=== PATIENT | male | born 2000 | race Caucasian/White ===

== ENCOUNTER 2019-06-21 18:20 | Emergency (ER) | payer OTHER ==
[~2019-06-21] VITALS: Ht 188 cm; Wt 106.4 kg
[2019-06-21 19:41] LABS: HEMATOCRIT 51.2 % (42.0-52.0); HEMOGLOBIN 16.5 g/dl (13.5-17.5); MEAN CORPUSCULAR HEMOGLOBIN 29.2 pg (27.0-33.0); MEAN CORPUSCULAR HGB CONC 32.2 g/dl (32.0-36.5); MEAN CORPUSCULAR VOLUME 90.5 fl (80.0-96.0); PLATELET COUNT, AUTOMATED 256 10^3/uL (150-450); RED BLOOD COUNT 5.66 10^6/uL (4.30-6.10); WHITE BLOOD COUNT 6.5 10^3/uL (4.0-10.0)
[2019-06-21 20:21] LABS: ACETAMINOPHEN LEVEL < 2.0 UG/ML (10.0-30.0); ALBUMIN 3.9 GM/DL (3.2-5.2); ALT/SGPT 60 U/L (12-78); BILIRUBIN,DIRECT 0.1 MG/DL (0.0-0.2); BILIRUBIN,TOTAL 0.5 MG/DL (0.2-1.0); BLOOD UREA NITROGEN 16 MG/DL (7-18); CALCIUM LEVEL 9.4 MG/DL (8.5-10.1); CARBON DIOXIDE LEVEL 29 MEQ/L (21-32); CHLORIDE LEVEL 106 MEQ/L (98-107); CREATININE FOR GFR 1.18 MG/DL (0.70-1.30); ETHYL ALCOHOL (ETHANOL) < 0.003 % (0.000-0.010); GLUCOSE, FASTING 79 MG/DL (70-100); POTASSIUM SERUM 4.5 MEQ/L (3.5-5.1); SALICYLATE LEVEL < 1.7 MG/DL (5.0-30.0); SODIUM LEVEL 141 MEQ/L (136-145); THYROID STIMULATING HORMONE 0.416 uIU/ML (0.463-3.98); TOTAL PROTEIN 7.5 GM/DL (6.4-8.2)
[2019-06-21 21:32] LABS: AMPHETAMINES LEVEL URINE NEGATIVE (NEGATIVE); BARBITURATES URINE NEGATIVE (NEGATIVE); BENZODIAZEPINES URINE NEGATIVE (NEGATIVE); CANNABINOIDS URINE NEGATIVE (NEGATIVE); COCAINE METABOLITE URINE NEGATIVE (NEGATIVE); METHADONE URINE NEGATIVE (NEGATIVE); OPIATES URINE NEGATIVE (NEGATIVE); PHENCYCLIDINE URINE NEGATIVE (NEGATIVE)
[2019-06-21] MEDS ORDERED: NICOTINE 21MG/24HR 1 EA TRANSDERMAL TD ONE (22:00)
--- NOTE | 2019-06-22 10:50 | ED PDOC ---
Provider Note New Patient James Monahan MRN: N/A Date of : N/A Date of Service: 06/22/2019 Chief Complaint Consultation for safety in the ER. History of Present Illness The patient, a 18-year-old young man with a history of no major psychiatric involvement presents after reportedly making a snap chat with a suicidal statement. The in [facility] had seen this after it was shown by a friend and he was brought in for evaluation. He had been denying suicidal and homicidal ideation through his entirety and reported that the statement made was taken out of context and that he had no intention to harm himself. He was observed for well over a day where he continued to have a normal mental status exam and denied suicidal and homicidal ideation. 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 Review Of Systems Depression: The patient denies any episodes of unprovoked depressed mood associated with neurovegetative symptoms lasting longer than 2 weeks with symptoms present nearly everyday. Anxiety: The patient denies any excessive worry associated with physical symptom s. They deny any experience of discreet panic in the past. Tammi: The patient denies any episodes of euphoria/dysphoria associated with decreased need for sleep, hedonism, talkatively or impulsivity lasting longer than 5 days. Psychotic: The patient denies any experiences of auditory or visual hallucinations. They deny any episodes of paranoia or delusional thinking in the past Trauma: The patient denies any traumatic events associated with nightmares or intrusive thoughts. Borderline: The patient screens negative for borderline personality at this junction. Past Psychiatric History The patient reports no history of psychiatric admissions, medication trials or current follow up. Has gone to [facility] on a walk-in basis. Allergies Please see below. Family Psychiatric History The patient denies/is unaware any history of mental health history including addictions and suicide. Social History The patient grew up in [place], [place]. Denies any significant history of trauma or abuse growing up. Reports a good family parents. 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 Substance Abuse History The patient denies any excessive alcohol use, tobacco or illicit drug use, denies history of substance use treatment. Medical History Patient has no significant past medical history. Mental Status Examination General: Well dressed with good hygiene Speech: Spontaneous and fluid Thought processes: Linear and logical MSK: Smooth and coordinated gait, no signs of tremors or involuntary orofacial movements Thought content: Future orientated Abstract reasoning, and computation: Intact Description of associations: Intact Description of abnormal or psychotic thoughts: Denies any suicidal or homicidal ideation. Denies any auditory or visual hallucinations. Does not appear to be responding to internal stimuli. Does not appear to be endorsing any bizarre or paranoid ideation. Judgment: fair Insight: fair Orientation: Alert and orientated 3 Cognition: Grossly normal Recent and remote memory: Intact Attention span and concentration: Intact Fund of knowledge: Adequate Mood: "okay" Affect: Euthymic with a full range Diagnoses Situational disturbance. Assessment and Plan The patient, a 18-year-old young man with a history of possible mild depression presents after making a statement that appears to be even misconstrued. Collateral information confirms the patient's series of events that at times he will make a concerning statement, but that he has no intention of acting on this behavior and mental health symptoms have remained stable. 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 He declines a voluntary admission and at this time must be discharged in good romel as he does not meet strict involuntary criteria. Disposition Discharged back to chain of [facility]. Time Spent 40 minutes. Saturday ARPIT CONTRERAS DO Jun 22, 2019 10:50
[2019-06-22 12:23] VITALS: BP 131/81
--- NOTE | 2019-06-22 16:45 | ECGEPIP ---
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
== END 2019-06-22 12:32 | disposition home or self-care (01) ==
LOC: EDSEX 18:20 → EDBD 18:20 → M ED 18:20
DX: F32.9 Major depressive disorder, single episode, unspecified (principal); R45.851 Suicidal ideations; F17.200 Nicotine dependence, unspecified, uncomplicated; I49.9 Cardiac arrhythmia, unspecified; R00.1 Bradycardia, unspecified; R94.31 Abnormal electrocardiogram [ECG] [EKG]
CPT/HCPCS: 36415; 80048; 80076; 80307; 84443; 85027; 93005; 99284; G0480

== ENCOUNTER 2019-07-30 09:28 | Emergency (ER) | payer OTHER ==
[~2019-07-30] VITALS: Ht 188 cm; Wt 103.8 kg
[2019-07-30] MEDS ORDERED: tylenol (09:34)
[2019-07-30] MEDS ORDERED: NS 1,000 ML IV ONE (10:00)
[2019-07-30] MEDS ORDERED: ONDANSETRON 4MG/2ML VIAL (J2405) IV ONE (10:00)
[2019-07-30] MEDS ORDERED: KETOROLAC 30 MG/ML VIAL (J1885) IV ONE (10:00)
[2019-07-30] MEDS ORDERED: ISOVUE-370 76% 100ML VIAL (Q9967) As Ordered ONE (10:18)
[2019-07-30 10:22] LABS: BASO # 0.1 10^3/uL (0.0-0.2); BASO % 0.9 % (0.0-1.0); EOS # 0.1 10^3/uL (0.0-0.5); HEMATOCRIT 48.2 % (42.0-52.0); HEMOGLOBIN 15.4 g/dl (13.5-17.5); LYMPH # 2.2 10^3/uL (1.5-5.0); LYMPH % 40.1 % (24.0-44.0); MEAN CORPUSCULAR HEMOGLOBIN 28.4 pg (27.0-33.0); MEAN CORPUSCULAR VOLUME 88.8 fl (80.0-96.0); MONO # 0.5 10^3/uL (0.0-0.8); MONO % 9.3 % (0.0-5.0); NEUTROPHILS # 2.6 10^3/uL (1.5-8.5); NEUTROPHILS % 47.7 % (36.0-66.0); PLATELET COUNT, AUTOMATED 229 10^3/uL (150-450); RED BLOOD COUNT 5.43 10^6/uL (4.30-6.10); WHITE BLOOD COUNT 5.5 10^3/uL (4.0-10.0)
[2019-07-30 10:46] LABS: ALBUMIN 4.5 GM/DL (3.2-5.2); BILIRUBIN,DIRECT 0.2 MG/DL (0.0-0.2); BILIRUBIN,TOTAL 0.9 MG/DL (0.2-1.0); TOTAL PROTEIN 7.8 GM/DL (6.4-8.2)
--- NOTE | 2019-07-30 11:06 | REP ---
CT ABDOMEN AND PELVIS WITH IV BUT WITHOUT ORAL CONTRAST: HISTORY: Right-sided abdominal pain. CT CONTRAST DOSE: 100 mL of intravenous Isovue 370. CT FINDINGS: Preliminary digital individual small group instructor radiograph demonstrates an unremarkable bowel gas pattern. The lung bases are clear on axial CT images. The liver and the spleen are normal in size homogeneous in texture. Normal adrenal glands are present bilaterally. No abnormalities noted in the pancreas or in the gallbladder. There are a few scattered normal-sized small bowel mesenteric lymph nodes in the upper abdomen. There is no visible ascites. A normal air-filled appendix is seen in the right lower quadrant without CT evidence of appendicitis. Urinary bladder, seminal vesicles, and prostate are unremarkable. Small and large bowel loops are normal in appearance. The kidneys enhance symmetrically and are morphologically intact. There is an accessory right renal artery. No abdominal wall defect is seen. Bone window settings show no bony destructive lesion. IMPRESSION: Negative CT study of the abdomen and pelvis. Normal appendix seen. No CT evidence of appendicitis. Electronically Signed by Edward Arreola MD 07/30/2019 11:38 A
[2019-07-30 11:58] LABS: BILIRUBIN, URINE MANUAL NEGATIVE (NEGATIVE); GLUCOSE, URINE (UA) MANUAL NEGATIVE (NEGATIVE); KETONE, URINE MANUAL NEGATIVE (NEGATIVE); UROBILINOGEN, URINE MANUAL NORMAL (NORMAL)
[2019-07-30] MEDS ORDERED: OMEP40CA97 PO (12:11)
[2019-07-30 12:29] VITALS: BP 130/66
== END 2019-07-30 12:31 | disposition home or self-care (01) ==
LOC: M ED 09:28
DX: R11.2 Nausea with vomiting, unspecified (principal); R10.9 Unspecified abdominal pain; F43.10 Post-traumatic stress disorder, unspecified; F17.200 Nicotine dependence, unspecified, uncomplicated
CPT/HCPCS: 74177; 80047; 80076; 83690; 85025; 96374; 96375; 99284; J1885; J2405; Q9967

== ENCOUNTER 2020-01-04 17:49 | Emergency (ER) | payer OTHER ==
[~2020-01-04] VITALS: Ht 188 cm; Wt 126.5 kg
[2020-01-04 17:49] VITALS: BP 146/78
[~2020-01-04 17:49] MED LIST: OMEP40CA97 PO; tylenol
[2020-01-04] MEDS ORDERED: SERT25TA21 (17:55)
[2020-01-04] MEDS ORDERED: PRAZ1CAP (17:55)
[2020-01-04] MEDS ORDERED: HYDR1CAP25 (17:55)
[2020-01-04] MEDS ORDERED: ZOLP10TA2 (17:55)
[2020-01-04] MEDS ORDERED: cefTRIAXone SOD 250MG VIAL (J0696 PER 250MG) IM ONE (18:30)
[2020-01-04] MEDS ORDERED: LIDOCAINE 1% SDV 5ML VIAL DILUENT ONE (18:30)
[2020-01-04] MEDS ORDERED: AZITHROMYCIN 250MG TABLET PO ONE (18:30)
[2020-01-04 20:17] LABS: CHLAMYDIA DNA AMPLIFICATION POSITIVE (NEGATIVE); GC DNA AMPLIFICATION NEGATIVE (NEGATIVE)
== END 2020-01-04 18:46 | disposition home or self-care (01) ==
LOC: M ED 17:49
DX: Z20.2 Contact with and (suspected) exposure to infections with a predominantly sexual mode of transmission (principal); F17.200 Nicotine dependence, unspecified, uncomplicated; F41.9 Anxiety disorder, unspecified; F32.9 Major depressive disorder, single episode, unspecified; Z79.899 Other long term (current) drug therapy
CPT/HCPCS: 87491; 87591; 99282; J0696

== ENCOUNTER 2020-03-29 10:48 | Inpatient (IN) | payer OTHER ==
[~2020-03-29] VITALS: Ht 182.9 cm; Wt 135.4 kg
[~2020-03-29 10:48] MED LIST changes: +HYDR1CAP25; +PRAZ1CAP PO; +SERT25TA21 PO; +ZOLP10TA2 PO
[2020-03-29 11:35] LABS: HEMATOCRIT 43.5 % (42.0-52.0); HEMOGLOBIN 15.3 g/dl (13.5-17.5); MEAN CORPUSCULAR HEMOGLOBIN 30.5 pg (27.0-33.0); MEAN CORPUSCULAR HGB CONC 35.2 g/dl (32.0-36.5); MEAN CORPUSCULAR VOLUME 86.7 fl (80.0-96.0); PLATELET COUNT, AUTOMATED 192 10^3/uL (150-450); RED BLOOD COUNT 5.02 10^6/uL (4.30-6.10); WHITE BLOOD COUNT 7.5 10^3/uL (4.0-10.0)
[2020-03-29 12:13] LABS: ACETAMINOPHEN LEVEL < 2.0 UG/ML (10.0-30.0); ALBUMIN 4.4 GM/DL (3.2-5.2); ALT/SGPT 106 U/L (12-78); BILIRUBIN,DIRECT 0.2 MG/DL (0.0-0.2); BILIRUBIN,TOTAL 0.7 MG/DL (0.2-1.0); BLOOD UREA NITROGEN 20 MG/DL (7-18); CALCIUM LEVEL 8.8 MG/DL (8.5-10.1); CARBON DIOXIDE LEVEL 28 MEQ/L (21-32); CHLORIDE LEVEL 110 MEQ/L (98-107); CREATININE FOR GFR 1.04 MG/DL (0.70-1.30); ETHYL ALCOHOL (ETHANOL) < 0.003 % (0.000-0.010); GLUCOSE, FASTING 89 MG/DL (70-100); SALICYLATE LEVEL < 1.7 MG/DL (5.0-30.0); SODIUM LEVEL 139 MEQ/L (136-145); THYROID STIMULATING HORMONE 0.582 uIU/ML (0.463-3.98); TOTAL PROTEIN 7.1 GM/DL (6.4-8.2)
[2020-03-29 13:43] LABS: AMPHETAMINES LEVEL URINE NEGATIVE (NEGATIVE); BARBITURATES URINE NEGATIVE (NEGATIVE); BENZODIAZEPINES URINE NEGATIVE (NEGATIVE); CANNABINOIDS URINE NEGATIVE (NEGATIVE); COCAINE METABOLITE URINE NEGATIVE (NEGATIVE); METHADONE URINE NEGATIVE (NEGATIVE); OPIATES URINE NEGATIVE (NEGATIVE); PHENCYCLIDINE URINE NEGATIVE (NEGATIVE)
[2020-03-29] MEDS ORDERED: NICOTINE 21MG/24HR 1 EA TRANSDERMAL TD ONE (14:15)
[2020-03-29] MEDS ORDERED: D31000TA2 PO (18:15)
[2020-03-29] MEDS ORDERED: MAALOX 30 ML SUSP *UDC PO PRN (18:30)
[2020-03-29] MEDS ORDERED: traZODone 50 MG TAB PO PRN (18:30)
[2020-03-29] MEDS ORDERED: MOM 30ML SUSPENSION UDC PO PRN (18:30)
[2020-03-29] MEDS ORDERED: ACETAMINOPHEN TAB 650MG DOSE (2X325MG) PO PRN (18:30)
[2020-03-29] MEDS ORDERED: PRAZOSIN 1 MG CAP PO SCH (21:00)
[2020-03-29] MEDS ORDERED: SERTRALINE HCL 25 MG TABLET PO SCH (21:00)
[2020-03-29 21:14] VITALS: BP 144/96
[2020-03-29] MEDS: VITAMIN D 1,000 INTERNATIONAL UNITS TABLET PO SCH (21:58)
[2020-03-30 06:12] VITALS: BP 150/92
[2020-03-30] MEDS: NICOTINE 21MG/24HR 1 EA TRANSDERMAL TD SCH (08:41)
[2020-03-30] MEDS ORDERED: INFLUENZA QUADRIVALENT PF VACCINE 0.5ML SYRINGE IM ONE (09:00)
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
[2020-03-30] MEDS ORDERED: hydrOXYzine 50 MG TAB PO PRN (13:15)
[2020-03-30 14:44] VITALS: BP 190/100
[2020-03-30] MEDS ORDERED: cloNIDine 0.1 MG TAB PO ONE (15:00)
[2020-03-30] MEDS ORDERED: amLODIPine 5 MG TAB PO ONE ×2 (15:00→17:00)
--- NOTE | 2020-03-30 15:27 | IPNPDOC ---
Date Seen The patient was seen on 03/30/20. Progress Note HISTORY AND PHYSICAL EXAMINATION DICTATED. ASSESSMENT AND PLAN: 1)HYPERTENSION, UNCONTROLLED 2)OBESITY BMI 40.5 3)DEPRESSION PLAN: CHECK A1C, LIPID PANEL, R/O PRIMARY HYPERALDOSTERONISM , CHECK RENIN, ALDOSTERONE AVOID BETA BLOCKERS DUE TO DEPRESSION TRIAL OF NORVASC AND LISINOPRIL IF REPEAT CREATININE IS ABNORMAL, CHECK RENAL US WITH DOPPLER TO RULE OUT RENAL ARTERY STENOSIS NO C/O PALPITATIONS, WEIGHT LOSS, DIZZINESS TO SUSPECT PHEOCHROMOCYTOMA. WEIGHT LOSS TO DECREASE BLOOD PRESSURE, GOAL OF 10% WEIGHT LOSS IN THE NEXT 3 M OS. HOSPITALIST WILL NEED TO FOLLOW RESULTS. PLS KEEP PT ON HOSPITALIST ROUNDING LIST. VS, I&O, 24H, Fishbone Vital Signs/I&O Vital Signs Date Time Temp Pulse Resp B/P (MAP) Pulse Ox O2 Delivery O2 Flow Rate FiO2 03/30/20 15:03 80 190/100 03/30/20 14:44 97.9 18 03/29/20 21:14 98 Room Air MIKKI RIVERA MD Mar 30, 2020 15:26
[2020-03-30 17:23] VITALS: BP 144/94
[2020-03-30] MEDS: VITAMIN D 1,000 INTERNATIONAL UNITS TABLET PO SCH (20:23)
[2020-03-30] MEDS: SERTRALINE 100 MG TAB PO SCH (20:24)
[2020-03-30] MEDS: PRAZOSIN 1 MG CAP PO SCH (20:24)
[2020-03-30] MEDS: zolPIDEM TARTRATE 5 MG TAB PO SCH (20:24)
[2020-03-30] MEDS ORDERED: lisinopriL 5 MG TAB PO ONE (21:00)
[2020-03-31 06:56] VITALS: BP 130/62
--- NOTE | 2020-03-31 07:02 | HPE ---
DATE OF ADMISSION: 03/29/2020 CHIEF COMPLAINT: hypertension, 190 systolic. Hospitalist was asked to evaluate medically. HISTORY OF PRESENT ILLNESS: A 19-year-old male with no past medical history, admitted to the inpatient health unit due to depression. No polysubstance abuse in the past. No recreational drug use. Was found to have elevated blood pressure, 150/92 and 190/100 without complaints of headache, changes in vision, blurred vision, chest pain, pressure, or tightness, shortness of breath, lightheadedness, or dizziness. No home medications had been taken. The patient has not had any referral to a hypertensive specialist to further evaluate for secondary hypertension. MEDICAL HISTORY: None. PAST SURGICAL HISTORY: None. ALLERGIES: No known drug allergies. HOSPITAL MEDICATIONS: - Minipress 4 mg every night - Zoloft 100 every night - Ambien 10 every night - hydroxyzine 100 every 6 hours - nicotine patch 21 grams daily - vitamin D 1000 units every night - acetaminophen 650 every 6 as needed - milk of magnesium 30 mL as needed - Mylanta 30 mL every 4 as needed SOCIAL HISTORY: Denies any alcohol abuse. Social drinkers. Two to three pack of cigarettes for the past 1-1-1/2 years. No recreational drug use. Denies cocaine use, methamphetamine, or marijuana use. 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 FAMILY HISTORY: Mother, 39. Father, 38. No medical problems. REVIEW OF SYSTEMS: Per history of present illness (HPI). A 12-point system otherwise negative. PHYSICAL EXAMINATION: Temperature 97.9, pulse 80, respiratory rate 18, blood pressure 190/100, 98% on room air. GENERAL: Patient is awake, alert, oriented to person, place, and time, answering questions appropriately. Face is symmetric. Tongue is midline. No sensory disturbance in the right and left face. Patient has no jugular venous distention (JVD) , thyromegaly, or cervical lymphadenopathy. LUNGS: Clear to auscultation. No wheezing, rales, or rhonchi. HEART: S1, S2, sinus rhythm. No murmurs, rubs or gallops. ABDOMEN: Obese, soft, nontender, nondistended. EXTREMITIES: No cyanosis, clubbing, or pitting edema. LABORATORY DATA: March 29: White count 7.5, hemoglobin 15, hematocrit 43, platelet count 192. Sodium 139, potassium 4, chloride 110, bicarbonate 28, BUN 20, creatinine 1.04, glucose 89. Total bilirubin 0.7, direct bilirubin 0.2, AST 158, ALT 106, alkaline phosphatase 50, total protein 7.1, albumin 4.4. TSH 0.582. 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 CURRENT ISSUES: 1. Depression, managed by psychiatrist at inpatient mental health unit. 2. Active tobacco use. Tobacco cessation counseling has been provided. Currently on nicotine patch. 3. Hypertension, uncontrolled. Patient has never been worked up for blood pressure before. He is obese, therefore will require weight loss. We will check plasma renin and aldosterone, given the patient Norvasc 10 mg total dose daily, clonidine. Patient will be followed. [facility]
[2020-03-31 08:05] LABS: BLOOD UREA NITROGEN 18 MG/DL (7-18); CALCIUM LEVEL 9.4 MG/DL (8.5-10.1); CARBON DIOXIDE LEVEL 29 MEQ/L (21-32); CHLORIDE LEVEL 105 MEQ/L (98-107); CHOLESTEROL LEVEL 225 MG/DL (<200); CHOLESTEROL RISK RATIO 6.081 (<5); CREATININE FOR GFR 1.09 MG/DL (0.70-1.30); GLUCOSE, FASTING 90 MG/DL (70-100); HDL CHOLESTEROL 37 MG/DL (>40); LDL CHOLESTEROL 136 MG/DL (<100); NON-HDL-C 188 MG/DL; POTASSIUM SERUM 4.1 MEQ/L (3.5-5.1); SODIUM LEVEL 138 MEQ/L (136-145); TRIGLYCERIDES LEVEL 260 MG/DL (<150)
[2020-03-31 09:40] LABS: HEMOGLOBIN A1c 5.1 %
[2020-03-31] MEDS: NICOTINE 21MG/24HR 1 EA TRANSDERMAL TD SCH (09:49)
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
[2020-03-31 18:19] VITALS: BP 136/65
[2020-03-31 20:48] VITALS: BP 156/70
[2020-03-31] MEDS: VITAMIN D 1,000 INTERNATIONAL UNITS TABLET PO SCH (20:48)
[2020-03-31] MEDS: PRAZOSIN 1 MG CAP PO SCH (20:48)
[2020-03-31] MEDS: zolPIDEM TARTRATE 5 MG TAB PO SCH (20:49)
[2020-03-31] MEDS: SERTRALINE 100 MG TAB PO SCH (20:49)
[2020-04-01 06:57] VITALS: BP 142/83
[2020-04-01] MEDS ORDERED: SERT25TA21 PO (09:15)
[2020-04-01] MEDS ORDERED: NICO21PAT TD (09:15)
[2020-04-01] MEDS ORDERED: PRAZ1CAP PO (09:15)
[2020-04-01] MEDS: NICOTINE 21MG/24HR 1 EA TRANSDERMAL TD SCH (09:28)
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
== END 2020-04-01 10:00 | disposition home or self-care (01) | DRG 885 ==
LOC: M ED 10:48 → M ED INP 18:20 → M PSY 20:54
PROVIDERS: ADMIT Psychiatry & Neurology Addiction Medicine; ATTEND Psychiatry & Neurology Psychiatry
DX: F32.1 Major depressive disorder, single episode, moderate (principal); Z68.41 Body mass index [BMI] 40.0-44.9, adult; Z62.811 Personal history of psychological abuse in childhood; Z62.810 Personal history of physical and sexual abuse in childhood; F17.210 Nicotine dependence, cigarettes, uncomplicated; F41.9 Anxiety disorder, unspecified; F43.10 Post-traumatic stress disorder, unspecified; Z91.5 Personal history of self-harm; I10 Essential (primary) hypertension; E66.9 Obesity, unspecified; Z79.899 Other long term (current) drug therapy

== ENCOUNTER 2020-04-05 08:53 | Emergency (ER) | payer OTHER ==
[~2020-04-05] VITALS: Ht 182.9 cm; Wt 135.4 kg
[~2020-04-05 08:53] MED LIST changes: +D31000TA2 PO; +NICO21PAT TD
[2020-04-05] MEDS ORDERED: bp med (09:15)
--- NOTE | 2020-04-05 09:26 | REPVR ---
PROCEDURE INFORMATION: Exam: CT Cervical Spine Without Contrast Exam date and time: 04/05/2020 9:11 AM Age: 19 years old Clinical indication: Pain; Other: Fall; Additional info: Trauma TECHNIQUE: Imaging protocol: Computed tomography images of the cervical spine without contrast. Radiation optimization: All CT scans at this facility use at least one of these dose optimization techniques: automated exposure control; mA and/or kV adjustment per patient size (includes targeted exams where dose is matched to clinical indication); or iterative reconstruction. COMPARISON: No relevant prior studies available. FINDINGS: Vertebrae: No acute fracture. Normal alignment. Discs/Spinal canal/Neural foramina: No significant disc protrusion. No severe spinal canal stenosis. No significant neural foraminal narrowing. Soft tissues: Unremarkable. Lungs: Lung apices are normal. IMPRESSION: No acute findings. Electronically signed by: Fide Liu On 04/05/2020 09:26:40 AM
--- NOTE | 2020-04-05 09:27 | REPVR ---
PROCEDURE INFORMATION: Exam: CT Head Without Contrast Exam date and time: 04/05/2020 9:11 AM Age: 19 years old Clinical indication: Pain; Other: Fall; Additional info: Trauma TECHNIQUE: Imaging protocol: Computed tomography of the head without contrast. Radiation optimization: All CT scans at this facility use at least one of these dose optimization techniques: automated exposure control; mA and/or kV adjustment per patient size (includes targeted exams where dose is matched to clinical indication); or iterative reconstruction. COMPARISON: No relevant prior studies available. FINDINGS: Brain: Normal. No hemorrhage. Unremarkable white matter. No mass effect. Ventricles: No ventriculomegaly. Bones/joints: Unremarkable. No acute fracture. Paranasal sinuses: There mild ethmoid and sphenoid sinus mucosal thickening. Mastoid air cells: Visualized mastoid air cells are well aerated. Soft tissues: Unremarkable. IMPRESSION: No acute hemorrhage or calvarial fracture. Electronically signed by: Fide Liu On 04/05/2020 09:27:32 AM
[2020-04-05 10:14] LABS: HEMATOCRIT 43.6 % (42.0-52.0); HEMOGLOBIN 14.9 g/dl (13.5-17.5); MEAN CORPUSCULAR HEMOGLOBIN 29.7 pg (27.0-33.0); MEAN CORPUSCULAR HGB CONC 34.2 g/dl (32.0-36.5); PLATELET COUNT, AUTOMATED 199 10^3/uL (150-450); RED BLOOD COUNT 5.01 10^6/uL (4.30-6.10); WHITE BLOOD COUNT 6.1 10^3/uL (4.0-10.0)
[2020-04-05 11:16] VITALS: BP 142/72
--- NOTE | 2020-04-05 12:54 | ECGEPIP ---
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
== END 2020-04-05 11:42 | disposition home or self-care (01) ==
LOC: M ED 08:53 → EDBD 08:53 → M ED 11:42
DX: R55 Syncope and collapse (principal); I10 Essential (primary) hypertension

== ENCOUNTER 2020-08-02 15:33 | Emergency (ER) | payer OTHER ==
[~2020-08-02] VITALS: Ht 188 cm; Wt 136.8 kg
[~2020-08-02 15:33] MED LIST changes: +bp med
[2020-08-02 17:00] LABS: BASO # 0.1 10^3/uL (0.0-0.2); BASO % 0.5 % (0.0-1.0); EOS # 0.2 10^3/uL (0.0-0.5); EOS % 2.4 % (0.0-3.0); HEMATOCRIT 51.2 % (42.0-52.0); HEMOGLOBIN 17.5 g/dl (13.5-17.5); LYMPH # 3.2 10^3/uL (1.5-5.0); LYMPH % 32.4 % (24.0-44.0); MEAN CORPUSCULAR HEMOGLOBIN 29.9 pg (27.0-33.0); MEAN CORPUSCULAR HGB CONC 34.2 g/dl (32.0-36.5); MEAN CORPUSCULAR VOLUME 87.4 fl (80.0-96.0); MONO # 0.8 10^3/uL (0.0-0.8); MONO % 8.2 % (0.0-5.0); NEUTROPHILS # 5.6 10^3/uL (1.5-8.5); NEUTROPHILS % 55.9 % (36.0-66.0); PLATELET COUNT, AUTOMATED 259 10^3/uL (150-450); RED BLOOD COUNT 5.86 10^6/uL (4.30-6.10)
[2020-08-02] MEDS ORDERED: NS 1,000 ML IV ONE (17:00)
[2020-08-02] MEDS ORDERED: ONDANSETRON 4MG/2ML VIAL IV ONE (17:00)
--- OUTSIDE RECORDS SUMMARY | 2020-08-02 17:16 | CCD ---
Author Author [facility] Organization [facility] Address Unknown Phone Unavailable Care Team Providers Care Shipwright Helper Name Role Phone PINA, ROXY NICK PA-C Unavailable Unavailable PINA, ROXY NICK PA-C Unavailable Unavailable PINA, ROXY NICK PA-C Unavailable Unavailable PINA, ROXY NICK PA-C Unavailable Unavailable PINA, ROXY NICK PA-C Unavailable Unavailable PINA, ROXY NICK PA-C Unavailable Unavailable PINA, ROXY NICK PA-C Unavailable Unavailable PINA, ROXY NICK PA-C Unavailable Unavailable PINA, ROXY NICK PA-C Unavailable Unavailable SYSTEM IN, NOT IN PROVIDER Unavailable Unavailable Re-disclosure Warning The records that you are about to access may contain information from federally-assisted alcohol or drug abuse programs. If such information is present, then the following federally mandated warning applies: This information has been disclosed to you from records protected by federal confidentiality rules (42 CFR part 2). The federal rules prohibit you from making any further disclosure of this information unless further disclosure is expressly permitted by the written consent of the person to whom it pertains or as otherwise permitted by 42 CFR part 2. A general authorization for the release of medical or other information is NOT sufficient for this purpose. The Federal rules restrict any use of the information to criminally investigate or prosecute any alcohol or drug abuse patient.The records that you are about to access may contain highly sensitive health information, the redisclosure of which is protected by Article 27-F of the [facility] Public Health law. If you continue you may have access to information: Regarding HIV / AIDS; Provided by facilities licensed or operated by the [facility] Office of Mental Health; or Provided by the [facility] Office for People With Developmental Disabilities. If such information is present, then the following [facility] mandated warning applies: This information has been disclosed to you from confidential records which are protected by state law. State law prohibits you from making any further disclosure of this information without the specific written consent of the person to whom it pertains, or as otherwise permitted by law. Any unauthorized further disclosure in violation of state law may result in a fine or senior care sentence or both. A general authorization for the release of medical or other information is NOT sufficient authorization for further disc losure. Encounters Encounter Providers Location Date Indications Data Source(s ) Outpatient Attender: NICK HELLER PA-C 01/29/2020 11:44:00 AM [facility] Outpatient Attender: NICK HELLER PA-C 01/28/2020 12:23:00 PM [facility] Outpatient Attender: NICK HELLER PA-C 01/27/2020 12:26:00 PM [facility] Outpatient Attender: NICK HELLER PA-C 01/26/2020 01:05:00 PM [facility] Outpatient Attender: NICK HELLER PA-C 01/25/2020 11:23:00 AM [facility] Outpatient Attender: NICK HELLER PA-C 01/22/2020 12:38:00 PM [facility] Outpatient Attender: NICK HELLER PA-C 01/21/2020 12:34:00 PM [facility] Outpatient Attender: NICK HELLER PA-C 01/20/2020 11:50:00 AM [facility] Outpatient Attender: NICK HELLER PA-C 01/19/2020 10:54:00 AM [facility] Outpatient Attender: NICK HELLER PA-C 01/18/2020 12:23:00 PM [facility] Outpatient Attender: NICK HELLER PA-C 01/14/2020 10:07:00 AM [facility] Outpatient Attender: NICK HELLER PA-C 01/13/2020 10:12:00 AM [facility] Outpatient Attender: NICK CARRERO-C 01/12/2020 12:42:00 PM [facility] Outpatient Attender: NICK FLORESC 01/11/2020 12:47:00 PM [facility] Outpatient Attender: NICK CARRERO-C 01/07/2020 10:30:00 AM [facility] Outpatient Attender: NICK FLORESC 01/06/2020 12:27:00 PM [facility] Outpatient Attender: NICK CARRERO-C 01/05/2020 12:57:00 PM [facility] Outpatient Attender: NICK CARRERO-C 01/04/2020 11:08:00 AM [facility] Outpatient Attender: NICK FLORESC 01/01/2020 10:51:00 AM [facility] Outpatient Attender: NICK CARRERO-C 12/31/2019 12:09:00 PM [facility] Outpatient Attender: NICK HELLER PA-C 12/30/2019 11:51:00 AM [facility] Outpatient Attender: NICK CARRERO-John 12/29/2019 11:54:00 AM [facility] Outpatient Attender: NICK HELLER PA-C 12/28/2019 11:35:00 AM [facility] Outpatient Attender: NICK CARRERO-C 12/25/2019 11:59:00 AM [facility] Outpatient Attender: NICK HELLER PA-C 12/24/2019 12:28:00 PM [facility] Outpatient Attender: NICK HELLER PA-C 12/23/2019 11:03:00 AM [facility] Outpatient Attender: NICK CARRERO-C 12/22/2019 12:36:00 PM [facility] Outpatient Attender: NICK FLORESC 12/21/2019 11:14:00 AM [facility] Outpatient Attender: NICK FLORESC 12/18/2019 11:41:00 AM [facility] Outpatient Attender: NICK FLORESC 12/17/2019 12:08:00 PM [facility] Outpatient Attender: NICK FLORESC 12/16/2019 12:24:00 PM [facility] Outpatient Attender: INCK HELLER PA-C 12/15/2019 11:50:00 AM [facility] Outpatient Attender: NICK HELLER PA-C 12/14/2019 11:46:00 AM [facility] Outpatient Attender: NICK HELLER PA-C 12/11/2019 12:06:00 PM [facility] Outpatient Attender: NICK HELLER PA-C 12/10/2019 11:22:00 AM [facility] Outpatient Attender: NICK HELLER PA-C 12/09/2019 12:10:00 PM [facility] Outpatient Attender: NICK HELLER PA-C 12/08/2019 10:11:00 AM [facility] Outpatient Attender: NICK HELLER PA-C 12/04/2019 09:06:00 AM [facility] Outpatient Attender: NICK HELLER PA-C 12/03/2019 09:44:00 AM [facility] Outpatient Attender: NICK HELLER PA-C 12/02/2019 12:15:00 PM [facility] Outpatient Attender: NICK HELLER PA-C 12/01/2019 10:41:00 AM [facility] Outpatient Attender: NICK HELLER PA-C 11/30/2019 11:02:00 AM [facility] Outpatient Attender: NICK HELLER PA-C 10/02/2019 11:16:00 AM [facility] Outpatient Attender: NICK HELLER PA-C 10/01/2019 11:17:00 AM [facility] Outpatient Attender: NICK HELLER PA-C 09/30/2019 11:26:00 AM [facility] Outpatient Attender: NICK HELLER PA-C 09/29/2019 11:56:00 AM [facility] Outpatient Attender: NICK HELLER PA-C 09/28/2019 11:33:00 AM [facility] Outpatient Attender: NICK HELLER PA-C 09/25/2019 11:06:00 AM [facility] Outpatient Attender: NICK HELLER PA-C 09/24/2019 11:40:00 AM [facility] Outpatient Attender: NICK HELLER PA-C 09/23/2019 12:04:00 PM [facility] Outpatient Attender: NICK HELLER PA-C 09/22/2019 10:53:00 AM [facility] Outpatient Attender: NICK HELLER PA-C 09/21/2019 10:22:00 AM [facility] Outpatient Attender: NICK HELLER PA-C 09/17/2019 09:51:00 AM [facility] Outpatient Attender: NICK HELLER PA-C 09/16/2019 12:23:00 PM [facility] Outpatient Attender: NICK HELLER PA-C 09/15/2019 10:18:00 AM [facility] Outpatient Attender: NICK HELLER PA-C 09/14/2019 10:33:00 AM [facility] Outpatient Attender: NICK HELLER PA-C 09/11/2019 10:37:00 AM [facility] Outpatient Attender: NICK HELLER PA-C 09/10/2019 10:53:00 AM [facility] Outpatient Attender: NICK HELLER PA-C 09/09/2019 11:26:00 AM [facility] Outpatient Attender: NICK HELLER PA-C 09/08/2019 11:05:00 AM [facility] Outpatient Attender: NICK HELLER PA-C 09/07/2019 11:20:00 AM [facility] Outpatient Attender: NICK HELLER PA-C 09/04/2019 10:49:00 AM [facility] Outpatient Attender: NICK HELLER PA-C 09/02/2019 11:00:00 AM [facility] Outpatient Attender: NICK HELLER PA-C 08/31/2019 11:39:00 AM [facility] Outpatient Attender: NICK HELLER PA-C 08/17/2019 02:00:00 PM [facility] Outpatient Referrer: PROVIDER SYSTEM IN 06/22/2019 09:42:0 0 AM [facility] SI Insurance Providers Payer name Policy type / Coverage type Policy ID Covered alliance party ID Covered alliance party's relationship to chong Policy Chong Plan Information [facility] [id number] SP [id number] [facility] WPS [id number] S [id number] Problems, Conditions, and Diagnoses Code Display Name Description Problem Type Effective Dates Data Source(s) F43.10 Post-traumatic stress disorder, unspecif ied POST-TRAUMATIC STRESS DISORDER, UNSPECIFIED Diagnosis 01/29/2020 11:44:00 AM EDT [facility] darius Z53.29 Procedure and treatment not carried out because of patient's decision for other reasons PROC/TRTMT NOT CRD OUT BEC PT DECISION FOR OTH REASONS Diagn osis 09/04/2019 10:49:00 AM [facility] SI SI Diagnosis 06/22/2019 09:42:00 AM [facility]
--- NOTE | 2020-08-02 17:27 | REP ---
INDICATION: Abdominal Pain. COMPARISON: No comparison chest x-ray. TECHNIQUE: Two views.. FINDINGS: The lungs are well inflated and free of infiltrate. The pleural angles are sharp. The heart size is normal. Pulmonary vasculature is not increased. No significant bony abnormality is seen. IMPRESSION: Negative chest x-ray. <Electronically signed by Rory Arreola > 08/02/20 [id number]
[2020-08-02 17:42] LABS: ALBUMIN 4.4 GM/DL (3.2-5.2); ALT/SGPT 101 U/L (12-78); BILIRUBIN,DIRECT 0.1 MG/DL (0.0-0.2); BILIRUBIN,TOTAL 0.5 MG/DL (0.2-1.0); BLOOD UREA NITROGEN 14 MG/DL (7-18); CARBON DIOXIDE LEVEL 26 MEQ/L (21-32); CHLORIDE LEVEL 105 MEQ/L (98-107); CK-MB VALUE MASS 1.2 NG/ML (<3.6); CPK CREATINE PHOSPHOKINASE 177 U/L (39-308); CREATININE FOR GFR 1.14 MG/DL (0.70-1.30); GLOMERULAR FILTRATION RATE > 60.0 (>60); GLUCOSE, FASTING 85 MG/DL (70-100); LIPASE 94 U/L (73-393); MB/CK RELATIVE INDEX 0.68 (< OR =4); SODIUM LEVEL 138 MEQ/L (136-145); TROPONIN I < 0.02 NG/ML (< 0.10)
[2020-08-02 18:04] LABS: RSV AMPLIFICATION NEGATIVE (NEGATIVE)
[2020-08-02] MEDS ORDERED: ISOVUE-370 76% 100ML VIAL As Ordered ONE (19:10)
--- NOTE | 2020-08-02 19:50 | REPVR ---
PROCEDURE INFORMATION: Exam: CT Abdomen And Pelvis With Contrast Exam date and time: 08/02/2020 7:18 PM Age: 20 years old Clinical indication: Abdominal pain; Localized; Left lower quadrant (llq); Additional info: Llq pain TECHNIQUE: Imaging protocol: Computed tomography of the abdomen and pelvis with intravenous contrast. Axial, coronal and sagittal reformatted images were created and reviewed. Radiation optimization: All CT scans at this facility use at least one of these dose optimization techniques: automated exposure control; mA and/or kV adjustment per patient size (includes targeted exams where dose is matched to clinical indication); or iterative reconstruction. Contrast material: ISOVUE 370; Contrast volume: 100 ml; Contrast route: INTRAVENOUS (IV); COMPARISON: CT ABD/PEL W/IV CONTRAST ONLY 07/30/2019 10:22 AM FINDINGS: Liver: Mild hepatic steatosis. Gallbladder and bile ducts: No radiodense gallstones. No biliary ductal dilatation. Pancreas: Unremarkable. Spleen: Unremarkable. Adrenal glands: Normal. No mass. Kidneys and ureters: No mass. No radiodense calculi. No hydronephrosis. Stomach and bowel: No bowel wall thickening. No obstruction. No pneumatosis. Appendix: Normal. Intraperitoneal space: No free fluid. No organized fluid collection. No free air. Vasculature: Unremarkable. No aneurysm. Lymph nodes: Small mesenteric lymph nodes, nonspecific in appearance. No pathologically enlarged lymph nodes. Urinary bladder: Unremarkable as visualized. Reproductive: Unremarkable. Bones/joints: No acute osseous abnormality. Soft tissues: Unremarkable. IMPRESSION: 1. No CT evidence of acute intra-abdominal or pelvic pathology. 2. Additional findings, as above. Electronically signed by: Augustin Madrid On 08/02/2020 19:50:08 PM
[2020-08-02] MEDS ORDERED: ONDA4TAB6 PO (19:52)
[2020-08-02 19:55] VITALS: BP 162/92
--- NOTE | 2020-08-03 05:57 | ECGEPIP ---
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
== END 2020-08-02 19:55 | disposition home or self-care (01) ==
LOC: M ED 15:33
DX: R10.84 Generalized abdominal pain (principal); R11.2 Nausea with vomiting, unspecified; I10 Essential (primary) hypertension; F33.9 Major depressive disorder, recurrent, unspecified; F41.9 Anxiety disorder, unspecified; F43.10 Post-traumatic stress disorder, unspecified; F17.200 Nicotine dependence, unspecified, uncomplicated
CPT/HCPCS: 71046; 74177; 80048; 80076; 81001; 82550; 82553; 83690; 84484; 85025; 85379; 87631; 93005; 96361; 96374; 99284; J2405; Q9967

== ENCOUNTER 2020-10-31 20:59 | Emergency (ER) | payer OTHER ==
[~2020-10-31] VITALS: Ht 188 cm; Wt 133.8 kg
[~2020-10-31 20:59] MED LIST changes: +ONDA4TAB6 PO
[2020-10-31] MEDS ORDERED: BENA20TA PO (21:06)
--- NOTE | 2020-10-31 22:49 | ECGEPIP ---
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
[2020-11-01] MEDS ORDERED: diphenhydrAMINE 50MG/ML VIAL (J1200) IV STA (01:14)
[2020-11-01] MEDS ORDERED: METOCLOPRAMIDE INJ 10MG/2ML VIAL (J2765 PER 1) IV ONE (01:15)
[2020-11-01] MEDS ORDERED: KETOROLAC 30 MG/ML 1ML VIAL IV ONE (01:15)
[2020-11-01] MEDS ORDERED: NS 1,000 ML IV ONE (01:15)
[2020-11-01 01:38] LABS: BASO # 0.1 10^3/uL (0.0-0.2); BASO % 0.6 % (0.0-1.0); EOS # 0.5 10^3/uL (0.0-0.5); EOS % 4.8 % (0.0-3.0); HEMATOCRIT 47.1 % (42.0-52.0); HEMOGLOBIN 15.9 g/dl (13.5-17.5); LYMPH # 3.9 10^3/uL (1.5-5.0); LYMPH % 40.7 % (24.0-44.0); MEAN CORPUSCULAR HEMOGLOBIN 29.7 pg (27.0-33.0); MEAN CORPUSCULAR HGB CONC 33.8 g/dl (32.0-36.5); MONO # 0.9 10^3/uL (0.0-0.8); MONO % 9.1 % (2.0-8.0); NEUTROPHILS # 4.3 10^3/uL (1.5-8.5); NEUTROPHILS % 44.4 % (36.0-66.0); PLATELET COUNT, AUTOMATED 204 10^3/uL (150-450); RED BLOOD COUNT 5.35 10^6/uL (4.30-6.10); WHITE BLOOD COUNT 9.6 10^3/uL (4.0-10.0)
--- NOTE | 2020-11-01 01:46 | REPVR ---
PROCEDURE INFORMATION: Exam: CT Head Without Contrast Exam date and time: 11/01/2020 1:14 AM Age: 20 years old Clinical indication: Pain; Headache not specified; Additional info: PARADA, syncope, +loc TECHNIQUE: Imaging protocol: Computed tomography of the head without contrast. Axial and coronal reformatted images were created and reviewed. Radiation optimization: All CT scans at this facility use at least one of these dose optimization techniques: automated exposure control; mA and/or kV adjustment per patient size (includes targeted exams where dose is matched to clinical indication); or iterative reconstruction. COMPARISON: CT Head without contrast 04/05/2020 9:07 AM FINDINGS: Brain: No CT evidence of acute intracranial hemorrhage or acute territorial infarction. No significant mass effect or midline shift. Basal cisterns patent. Cerebral ventricles: Normal in size and configuration. Bones/joints: No acute osseous abnormality. Paranasal sinuses: Unremarkable. No fluid levels. Mastoid air cells: Grossly unremarkable. Soft tissues: Grossly unremarkable. IMPRESSION: No CT evidence of acute intracranial pathology. Electronically signed by: Augustin Madrid On 11/01/2020 01:46:26 AM
--- NOTE | 2020-11-01 02:05 | REPVR ---
PROCEDURE INFORMATION: Exam: XR Chest Exam date and time: 11/01/2020 1:52 AM Age: 20 years old Clinical indication: Chest pain; Type not specified TECHNIQUE: Imaging protocol: XR of the chest. Views: 1 view. COMPARISON: ID Chest, 2 view PA, Lat 08/02/2020 5:01 PM FINDINGS: Lungs: Unremarkable. No consolidation. Pleural spaces: Unremarkable. No pleural effusion. No pneumothorax. Heart/Mediastinum: Unremarkable. No cardiomegaly. Bones/joints: Unremarkable. IMPRESSION: No acute radiographic findings. Electronically signed by: Augustin Madrid On 11/01/2020 02:06:15 AM
[2020-11-01 02:10] LABS: ALBUMIN 4.3 GM/DL (3.2-5.2); ALT/SGPT 75 U/L (12-78); BILIRUBIN,DIRECT 0.1 MG/DL (0.0-0.2); BILIRUBIN,TOTAL 0.9 MG/DL (0.2-1.0); CK-MB VALUE MASS 3.8 NG/ML (<3.6); CPK CREATINE PHOSPHOKINASE 824 U/L (39-308); FREE THYROXINE INDEX 2.9 % (1.4-3.8); LIPASE 109 U/L (73-393); MB/CK RELATIVE INDEX 0.46 (< OR =4); T UPTAKE 39 % (33-40); THYROXINE (T4) 7.5 UG/DL (4.5-12.0); TOTAL PROTEIN 7.3 GM/DL (6.4-8.2); TROPONIN I < 0.02 NG/ML (< 0.10)
[2020-11-01 02:16] VITALS: BP 105/53
== END 2020-11-01 02:26 | disposition home or self-care (01) ==
LOC: M ED 20:59
DX: R55 Syncope and collapse (principal); R51.9 Headache, unspecified; R07.89 Other chest pain; R74.8 Abnormal levels of other serum enzymes; R94.31 Abnormal electrocardiogram [ECG] [EKG]; I10 Essential (primary) hypertension; F17.200 Nicotine dependence, unspecified, uncomplicated; Z79.899 Other long term (current) drug therapy
CPT/HCPCS: 70450; 71045; 80047; 80076; 82550; 82553; 83690; 84436; 84443; 84479; 84484; 85025; 85379; 93005; 96374; 96375; 99284; J1200; J1885; J2765

== ENCOUNTER 2020-11-02 19:05 | Emergency (ER) | payer OTHER ==
[~2020-11-02] VITALS: Ht 188 cm; Wt 133.2 kg
[~2020-11-02 19:05] MED LIST changes: +BENA20TA PO
[2020-11-02 21:00] LABS: APPEARANCE, URINE CLEAR (CLEAR); BACTERIA, URINE AUTO NEGATIVE (NEGATIVE); BILIRUBIN, URINE AUTO NEGATIVE (NEGATIVE); BLOOD, URINE BLOOD NEGATIVE (NEGATIVE); COLOR, URINE YELLOW (YELLOW); GLUCOSE, URINE (UA) AUTO NEGATIVE (NEGATIVE); KETONE, URINE AUTO NEGATIVE (NEGATIVE); LEUKOCYTE ESTERASE, URINE AUTO NEGATIVE (NEGATIVE); NITRITE, URINE AUTO NEGATIVE (NEGATIVE); PROTEIN, URINE AUTO NEGATIVE (NEGATIVE); RBC, URINE AUTO 2 /HPF (0-3); SPECIFIC GRAVITY URINE AUTO 1.019 (1.002-1.035); SQUAMOUS EPITHELIAL CELL UR AU 0 /HPF (0-6); UROBILINOGEN, URINE AUTO 0.2 mg/dL (0.0-2.0); WBC, URINE AUTO 0 /HPF (0-3)
[2020-11-02 21:02] LABS: BASO # 0.1 10^3/uL (0.0-0.2); BASO % 0.6 % (0.0-1.0); EOS # 0.4 10^3/uL (0.0-0.5); EOS % 4.7 % (0.0-3.0); HEMATOCRIT 50.5 % (42.0-52.0); HEMOGLOBIN 17.1 g/dl (13.5-17.5); LYMPH # 3.6 10^3/uL (1.5-5.0); LYMPH % 38.5 % (24.0-44.0); MEAN CORPUSCULAR HEMOGLOBIN 29.6 pg (27.0-33.0); MEAN CORPUSCULAR HGB CONC 33.9 g/dl (32.0-36.5); MEAN CORPUSCULAR VOLUME 87.5 fl (80.0-96.0); MONO # 0.8 10^3/uL (0.0-0.8); MONO % 8.4 % (2.0-8.0); NEUTROPHILS # 4.4 10^3/uL (1.5-8.5); NEUTROPHILS % 47.5 % (36.0-66.0); PLATELET COUNT, AUTOMATED 233 10^3/uL (150-450); RED BLOOD COUNT 5.77 10^6/uL (4.30-6.10); WHITE BLOOD COUNT 9.3 10^3/uL (4.0-10.0)
[2020-11-02] MEDS ORDERED: hydroCHLOROthiazide 12.5 MG CAPSULE PO ONE (21:05)
[2020-11-02] MEDS ORDERED: METOCLOPRAMIDE 10 MG TAB PO ONE (21:05)
[2020-11-02 21:17] VITALS: BP 164/81
[2020-11-02 21:38] LABS: ALBUMIN 4.5 GM/DL (3.2-5.2); BILIRUBIN,DIRECT 0.2 MG/DL (0.0-0.2); BILIRUBIN,TOTAL 0.6 MG/DL (0.2-1.0); TOTAL PROTEIN 8.2 GM/DL (6.4-8.2)
--- NOTE | 2020-11-02 23:05 | REPVR ---
PROCEDURE INFORMATION: Exam: CT Head Without Contrast Exam date and time: 11/02/2020 10:33 PM Age: 20 years old Clinical indication: Pain; Headache; Additional info: PARADA TECHNIQUE: Imaging protocol: Computed tomography of the head without contrast. Axial and coronal reformatted images were created and reviewed. Radiation optimization: All CT scans at this facility use at least one of these dose optimization techniques: automated exposure control; mA and/or kV adjustment per patient size (includes targeted exams where dose is matched to clinical indication); or iterative reconstruction. COMPARISON: CT Head without contrast 11/01/2020 1:22 AM FINDINGS: Brain: No CT evidence of acute intracranial hemorrhage or acute territorial infarction. No significant mass effect or midline shift. Basal cisterns patent. Cerebral ventricles: Normal in size and configuration. Bones/joints: No acute osseous abnormality. Paranasal sinuses: Unremarkable. No fluid levels. Mastoid air cells: Grossly unremarkable. Soft tissues: Grossly unremarkable. IMPRESSION: No CT evidence of acute intracranial pathology. Electronically signed by: Augustin Madrid On 11/02/2020 23:04:52 PM
[2020-11-02 23:15] VITALS: BP 119/54
--- NOTE | 2020-11-03 13:04 | ECGEPIP ---
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
== END 2020-11-02 23:36 | disposition home or self-care (01) ==
LOC: M ED 19:05
DX: I10 Essential (primary) hypertension (principal); Z79.899 Other long term (current) drug therapy; F17.210 Nicotine dependence, cigarettes, uncomplicated

== ENCOUNTER 2020-11-05 00:43 | Emergency (ER) | payer OTHER ==
[~2020-11-05] VITALS: Ht 188 cm; Wt 133.3 kg
[2020-11-05] MEDS ORDERED: diphenhydrAMINE 50MG/ML VIAL (J1200) IV ONE (01:15)
[2020-11-05] MEDS ORDERED: METOCLOPRAMIDE INJ 10MG/2ML VIAL (J2765 PER 1) IV ONE (01:15)
[2020-11-05] MEDS ORDERED: NS 1,000 ML IV ONE (01:15)
[2020-11-05] MEDS ORDERED: KETOROLAC 30 MG/ML 1ML VIAL IV ONE (01:15)
[2020-11-05 04:15] VITALS: BP 115/56
[2020-11-05] MEDS ORDERED: KETO10TAB PO (04:17)
[2020-11-05] MEDS ORDERED: CETI-24 PO (04:17)
[2020-11-05] MEDS ORDERED: AZEL1SPR3 NARES (04:17)
== END 2020-11-05 04:35 | disposition home or self-care (01) ==
LOC: M ED 00:43
DX: G44.89 Other headache syndrome (principal); I10 Essential (primary) hypertension; Z79.899 Other long term (current) drug therapy; F17.210 Nicotine dependence, cigarettes, uncomplicated
CPT/HCPCS: 96361; 96374; 96375; 99284; J1200; J1885; J2765